=== PATIENT | female | born 1955 | race Caucasian/White ===

== ENCOUNTER 2023-06-27 12:43 | Outpatient (CLI) | payer MEDICARE, SELFPAY ==
--- NOTE | ~2023-06-27 | XR_ITS ---
AP view of the pelvis and AP and lateral views of the left hip Clinical history: Pain COMPARISON: 02/19/2022 Findings: No acute fracture or dislocation is seen. Osseous alignment is anatomic. Left hip joint is unremarkable. 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 Stable possible sessile osteochondroma or other bon y excrescence at the left ischium. Soft tissues are unremarkable. Impression: No acute abnormality. Right hip arthroplasty. Stable possible sessile osteochondroma or other bony excrescence at the left ischium. Reviewed, dictated and finalized at location . Impression: No acute abnormality. Right hip arthroplasty. Stable possible sessile osteochondroma or other bony excrescence at the left is chium.
--- NOTE | ~2023-06-27 | XR_ITS ---
Right Hand Technique: PA, oblique, and lateral views were obtained. Clinical History: Pain Findings: No acute fracture or dislocation is seen. Osseous alignment is anatomic. Joint spaces are p reserved. Soft tissues are unremarkable. Impression: Unremarkable right hand. Reviewed, dictated and finalized at location M. Impression: Unremarkable right hand.
== END 2023-06-27 12:44 | disposition home or self-care (01) ==
LOC: ANHIMG 12:47
PROVIDERS: Visit Provider Orthopaedic Surgery
DX: M79.641 Pain in right hand (principal); M70.62 Trochanteric bursitis, left hip
CPT/HCPCS: 73130; 73502